=== PATIENT | female | born 1930 | race Caucasian/White ===

== ENCOUNTER → 2017-12-24 | Outpatient (CLI) | payer MEDICARE, OTHER ==
[~2017-12-24] MED LIST: LOZOL2.5 M1 GT; Z.0.LOTREL 5-20 MG1 PO; Z.0.SYNTHROID50 MCG PO; ZYRTEC5 M2 PO
--- NOTE | 2017-12-24 12:43 | Diagnostic Imaging Report ---
PROCEDURE: Frontal and lateral views of the chest. COMPARISON: None. INDICATIONS: COUGH FINDINGS: Lines/tubes: None. Lungs: Bibasilar airspace opacities. No parenchymal mass. Pleura: There is no pleural effusion or pneumothorax. Heart and mediastinum: The heart and the mediastinum are normal. Atherosclerotic calcifications. Bones: No acute bony abnormality. Degenerative changes of the thoracic spine. IMPRESSION: Bibasilar airspace opacities may represent a developing pneumonia. Dictated by: Da Burnett M.D. on 12/24/2017 at 12:44 Electronically approved by: Da Burnett M.D. on 12/24/2017 at 12:44
== END ==
LOC: RAD 11:55
PROVIDERS: ATTEND Family Medicine
DX: R05 Cough (principal); J06.9 Acute upper respiratory infection, unspecified
CPT/HCPCS: 71046